=== PATIENT | female | born 1955 | race Caucasian/White ===

== ENCOUNTER 2019-04-28 07:21 | Emergency (ER) | payer BC, OTHER ==
[2019-04-28] MEDS ORDERED: Acetaminophen 325 MG Tab PO ONE (07:34)
--- NOTE | 2019-04-28 08:12 | EDM.PDOC ---
ED HPI GENERAL MEDICAL PROBLEM - General Chief Complaint: Upper Extremity Injury/Pain Stated Complaint: R SHOULDER INJURY Time Seen by Provider: 04/28/19 07:40 Source of Information: Reports: Patient History Limitations: Reports: No Limitations - History of Present Illness INITIAL COMMENTS - FREE TEXT/NARRATIVE: pT ARRIVED WITH PAIN IN THE RT SHOULDER AFTER A FALL IN THE PARKING LOT AT THE [facility]. Onset: Today, Sudden Duration: Hour(s): Location: Reports: Upper Extremity, Right, Other (pt is very tender in the upper humerus area. She has no wrist pain, or elebow tenderness when she is palpated. ) Associated Symptoms: Reports: No Other Symptoms Right Upper Arm Pain Score (Numeric/FACES): 10 - Related Data Allergies Allergy/AdvReac Type Severity Reaction Status Date / Time amoxicillin Allergy Swelling Verified 04/28/19 07:27 Home Meds: Home Meds Valsartan/Hydrochlorothiazide [Diovan Hct 160-25 mg Tablet] 1 tab PO DAILY 04/28 [History] atorvaSTATin [Lipitor] 10 mg PO BEDTIME 04/28/19 [History] Past Medical History HEENT History: Reports: Impaired Vision Cardiovascular History: Reports: Hypertension - Infectious Disease History Infectious Disease History: Reports: Chicken Pox Social & Family History - Tobacco Use Smoking Status *Q: Never Smoker - Caffeine Use Caffeine Use: Reports: Coffee, Soda, Tea - Recreational Drug Use Recreational Drug Use: No Review of Systems - Review of Systems Review Of Systems: See Below Constitutional: Reports: No Symptoms Eyes: Reports: No Symptoms Ears: Reports: No Symptoms Nose: Reports: No Symptoms Mouth/Throat: Reports: No Symptoms Respiratory: Reports: No Symptoms Cardiovascular: Reports: No Symptoms GI/Abdominal: Reports: No Symptoms Genitourinary: Reports: No Symptoms Musculoskeletal: Reports: Other (pain in the upper humerus. ) Skin: Reports: No Symptoms ED EXAM, GENERAL - Physical Exam Exam: See Below Free Text/Narrative:: pt worked all nite and she did not put her boots on this am. She fell in the [facility] parking lot. She has pain in the upper humerus. Exam Limited By: No Limitations General Appearance: Alert, Severe Distress Ears: Normal TMs Nose: Normal Inspection Throat/Mouth: Normal Inspection Head: Atraumatic Neck: Normal Inspection Respiratory/Chest: No Respiratory Distress Cardiovascular: Regular Rate, Rhythm GI/Abdominal: Soft, Non-Tender (Female) Exam: Deferred Rectal (Female) Exam: Deferred Back Exam: Normal Inspection Extremities: Other (pt is very tender to palpate in the upper humerus area. Her pulse is normal and she has nornmal sensation. She has noted slight tingling. ) Neurological: Alert, Oriented, Normal Cognition Course - Vital Signs Last Recorded V/S: Last Vital Signs Temp 35.9 C 04/28/19 07:43 Pulse 68 04/28/19 07:43 Resp 22 H 04/28/19 07:43 BP 152/69 H 04/28/19 07:43 Pulse Ox 95 04/28/19 07:43 - Orders/Labs/Meds Orders: Active Orders 24 hr Category Date Time Status Shoulder Comp Rt [CR] Stat Exams 04/28/19 07:33 Ordered Meds: Medications Discontinued Medications Generic Name Dose Route Start Last Admin Trade Name Freq PRN Reason Stop Dose Admin Acetaminophen 650 mg 04/28/19 07:34 04/28/19 07:38 Tylenol PO 04/28/19 07:35 650 mg NOW ONE Administration Hydrocodone Bitart/Acetaminophen 1 tab 04/28/19 08:13 [place] 325-5 Mg PO 04/28/19 08:14 ONETIME ONE Ondansetron HCl 4 mg 04/28/19 08:13 Zofran Odt PO 04/28/19 08:14 ONETIME ONE - Re-Assessments/Exams Free Text/Narrative Re-Assessment/Exam: 04/28/19 08:20 xray reveals a fracture of the humeral neck with impaction. 04/28/19 08:21 a shoulder imoblizer was applied. Departure - Departure Time of Disposition: 08:12 Disposition: Home, Self-Care 01 Condition: Fair Clinical Impression: Humeral surgical neck fracture - Discharge Information Referrals: PCP,None [Primary Care Provider] - Forms: ED Department Discharge Care Plan Goals: SHOULDER IMOBLIZER, COOL PACK, NORCO 5-325 Q6H PRN FOR PAIN. APPT WITH dR Mcgee TOMORROW. Sepsis Event Note - Evaluation Sepsis Screening Result: No Definite Risk - Focused Exam Vital Signs: Vital Signs Temp Pulse Resp BP Pulse Ox 04/28/19 07:43 35.9 C 68 22 H 152/69 H 95 04/28/19 07:29 35.9 C 68 22 H 152/69 H 95 Date Exam was Performed: 04/28/19 Time Exam was Performed: 08:16 - My Orders Last 24 Hours: My Active Orders 04/28/19 07:33 Shoulder Comp Rt [CR] Stat - Assessment/Plan Last 24 Hours: My Active Orders 04/28/19 07:33 Shoulder Comp Rt [CR] Stat
[2019-04-28] MEDS ORDERED: Acetaminophen/HYDROcodone 325-5 MG Tab PO ONE (08:13)
[2019-04-28] MEDS ORDERED: Ondansetron 4 MG Tab.DIS PO ONE (08:13)
--- NOTE | 2019-04-29 10:01 | CR ---
Shoulder Comp Rt CLINICAL HISTORY: Fall FINDINGS: There is a comminuted, mildly displaced fracture of the proximal humerus Impression: Proximal humeral fracture
== END 2019-04-28 08:39 | disposition home or self-care (01) ==
LOC: JP.ED 07:21
DX: S42.211A Unspecified displaced fracture of surgical neck of right humerus, initial encounter for closed fracture (principal); I10 Essential (primary) hypertension; Z88.1 Allergy status to other antibiotic agents; W19.XXXA Unspecified fall, initial encounter
CPT/HCPCS: 73030; 99283; A9270